=== PATIENT | male | born 1975 | race Caucasian/White ===

== ENCOUNTER → 2018-05-26 | Outpatient (CLI) | payer OTHER ==
[~2018-05-26] MED LIST: DEXL60CA2 PO
--- NOTE | 2018-05-26 09:18 | RAD ---
Three-view right shoulder dated 05/26/2018. No comparison available. Clinical data indication: Posterior right shoulder pain. FINDINGS: 3 views right shoulder show normal bony alignment. No displaced fracture. No acute osseous or articular abnormality. Mild hypertrophic change of the AC joint. IMPRESSION: No acute findings. Electronically signed by: Roberto Felton MD (05/26/2018 9:14 AM) [id number]
== END | disposition home or self-care (01) ==
LOC: DXRAD 08:40
DX: M89.311 Hypertrophy of bone, right shoulder (principal)
CPT/HCPCS: 73030

== ENCOUNTER 2018-06-16 17:44 | Emergency (ER) | payer OTHER ==
[~2018-06-16] VITALS: Ht 185.4 cm; Wt 122.5 kg
--- NOTE | 2018-06-16 17:51 | ED.ADGEN ---
Past History Past Medical History: No Pertinent History, GERD, Hypertension Past Surgical History: No Surgical History Smoking: Cigarettes, Quit Greater Than 1 Year Alcohol Use: Occasionally Drug Use: None Adult General Chief Complaint Chief Complaint ".. I all sudden got red faced.. running a temp... and my nose started running... I thought I should get checked.. so I would not spread flu to pts. 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 Pt. did take flu vaccination this year. Patient normally healthy and follows with [facility]. Patient is normally healthy except for GERD and hypertension. Is in contact with possible patients. No specific ill contacts outside of the hospital setting. No recent travel. No history immunosuppression. Review of Systems Review of Systems Constitutional: History of fever or chills [] Eyes: Denies change in visual acuity, redness, or eye pain [] HENT: History of nasal congestion , rhinorrhea, sore throat [] Respiratory: Dry cough nonproductive Cardiovascular: No additional information not addressed in HPI [] GI: Denies abdominal pain, nausea, vomiting, bloody stools or diarrhea [] : Denies dysuria or hematuria [] Musculoskeletal: Denies back pain or joint pain, mild myalgia and arthralgia Integument: Denies rash or skin lesions [] Neurologic: Denies headache, focal weakness or sensory changes []generalized malaise Endocrine: Denies polyuria or polydipsia [] All other systems were reviewed and found to be within normal limits, except as documented in this note. Family History Family History Noncontributory Current Medications Current Medications See nursing for home medications Allergies Allergies Allergies Coded Allergies Type Severity Reaction Last Updated Verified No Known Drug Allergies 12/05/13 No Physical Exam Physical Exam Constitutional: Well developed, well nourished, moderately acute distress, non- toxic appearance. [] HENT: Normocephalic, atraumatic, bilateral external ears normal, oropharynx moist, mild erythema, no oral exudates, nose swollen turbinates and clear rhinorrhea[] His face is flushed Eyes: PERRLA, EOMI, conjunctiva normal, no discharge. [] Neck: Normal range of motion, no tenderness, supple, no stridor. [] Cardiovascular: Tachycardia Heart rate regular rhythm, no murmur [] Lungs & Thorax: Bilateral breath sounds clear to auscultation [] Abdomen: Bowel sounds normal, soft, no tenderness, no masses, no pulsatile masses. [] Skin: Warm, dry, no erythema, no rash. [] Back: No tenderness, no CVA tenderness. [] Extremities: No tenderness, no cyanosis, no clubbing, ROM intact, no edema. [] Neurologic: Alert and oriented X 3, normal motor function, normal sensory function, no focal deficits noted. [] Psychologic: Affect normal, judgement normal, mood normal. [] Current Patient Data Vital Signs Vital Signs Date Time Temp Pulse Resp B/P (MAP) Pulse Ox O2 Delivery O2 Flow Rate FiO2 06/16/18 18:55 96 18 153/102 (119) 97 Room Air 06/16/18 17:44 98.6 Lab Results Laboratory Tests Test 06/16/18 17:59 Influenza Type A (Rapid) Positive (NEGATIVE) Influenza Type B (Rapid) Negative (NEGATIVE) EKG EKG [] Radiology/Procedures Radiology/Procedures [] Course & Med Decision Making Course & Med Decision Making Pertinent Labs and Imaging studies reviewed. (See chart for details). Push fluids. Get adequate rest. Take Tylenol or ibuprofen for discomfort. No contact with patients until, afebrile without meds. Return if any concerns. Patient declined Tamiflu. Follow-up primary care [] Final Impression Final Impression 1. Fever 2. HTN[] 3. + Influ A Dragon Disclaimer Dragon Disclaimer This electronic medical record was generated, in whole or in part, using a voice recognition dictation system. Dragon Disclaimer This chart was dictated in whole or in part using Voice Recognition software in a busy, high-work load, and often noisy Emergency Department environment. It may contain unintended and wholly unrecognized errors or omissions. 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 Found to have positive influenza A. Discharge Information Condition at Discharge: Improved, Stable Disposition/Orders: D/C to Home Dischare Medications Active Scripts Active Reported Dexilant (Dexlansoprazole) 60 Mg Dom.mp 60 Mg PO DAILY GLENN JACOB MD Jun 16, 2018 17:51
[2018-06-16 18:35] LABS: INFLUENZA A PATIENT POSITIVE (NEGATIVE); INFLUENZA B PATIENT NEGATIVE (NEGATIVE)
[2018-06-16 18:55] VITALS: BP 153/102
== END 2018-06-16 18:55 | disposition home or self-care (01) ==
LOC: ER 17:44
DX: J10.1 Influenza due to other identified influenza virus with other respiratory manifestations (principal); I10 Essential (primary) hypertension; K21.9 Gastro-esophageal reflux disease without esophagitis; Z87.891 Personal history of nicotine dependence
CPT/HCPCS: 87804; 99283